=== PATIENT | female | born 1965 | race Caucasian/White ===

== ENCOUNTER 2017-06-30 20:09 | Emergency (ER) | payer SELFPAY ==
[~2017-06-30] VITALS: Ht 177.8 cm; Wt 72.5 kg
[~2017-06-30 20:09] MED LIST: Z.0.NO CURRENT MEDS
[2017-06-30 20:15] VITALS: BP 141/91; PULSE 92; RESP 18; TEMP 98.3; O2SAT 98
[2017-06-30] MEDS ORDERED: SODIUM CHLOR 0.9% 1000 ML INJ 1,000 ML IV SCH (20:16)
--- NOTE | 2017-06-30 20:16 | PD ---
HPI Chief Complaint: Alcohol/Drug Intoxication Time Seen by Provider: 20:14 Travel History International Travel<30 days: No Contact w/Intl Traveler<30days: No Traveled to known affect area: No History of Present Illness HPI The patient is a 52-year-old female who was found passed out in the women's restroom at [employer] where she works. She denies any head trauma or any other trauma. She denies any alcohol. Ambulance personnel reported a smell of alcohol on her breath. Blood sugar was 90 per [facility] personnel. The patient does have a history of depression. PFSH Past Medical History Cancer: No Diabetes: No Glaucoma: No Hepatitis: No Hiatal Hernia: No Hypertension: No Thyroid Disease: No Past Surgical History Abdominal Surgery: Yes (APPENDECTOMY) Gynecologic Surgery: Yes (C SECTION,) Thoracic Surgery: Yes (BREAST IMPLANTS) Social History Alcohol Use: Yes (WINE OCC.) Tobacco Use: No Allergies-Medications (Allergen,Severity, Reaction): Coded Allergies: vitamin E (d-alpha tocopherol) (Verified Allergy, Intermediate, Rash, ) No Known Allergies (Verified Adverse Reaction, Unknown, 06/30/17) Reported Meds & Prescriptions Reported Meds & Active Scripts Active Active Prescriptions or Reported Medications Unobtainable Review of Systems ROS Limitations: Intoxication, Altered Mental Status Except as stated in HPI: all other systems reviewed are Neg Physical Exam Exam Limitations: Intoxication, Altered Mental Status Narrative GENERAL: The patient is slightly somnolent but will answer questions fairly quickly and appropriately. She smells of what appears to be vodka. Her vital signs show blood pressure 141/91 with heart rate of 92 but otherwise normal. SKIN: Focused skin assessment warm/dry. HEAD: Atraumatic. Normocephalic. EYES: Pupils equal and round. No scleral icterus. No injection or drainage. ENT: No nasal bleeding or discharge. Mucous membranes pink and moist. NECK: Trachea midline. No JVD. CARDIOVASCULAR: Regular rate and rhythm. No murmur appreciated. RESPIRATORY: No accessory muscle use. Clear to auscultation. Breath sounds equal bilaterally. GASTROINTESTINAL: Abdomen soft, non-tender, nondistended. Hepatic and splenic margins not palpable. No guarding or rebound is present. MUSCULOSKELETAL: No obvious deformities. No clubbing. No cyanosis. No edema. NEUROLOGICAL: Awake and alert. No obvious cranial nerve deficits. Motor grossly within normal limits. Normal speech. PSYCHIATRIC: The patient appears alcohol intoxicated; insight and judgment fair. Data Data Last Documented VS Vital Signs Date Time Temp Pulse Resp B/P (MAP) Pulse Ox O2 Delivery O2 Flow Rate FiO2 06/30/17 20:21 18 98 06/30/17 20:21 92 Room Air 06/30/17 20:15 98.3 141/91 (108) Orders Orders Electrocardiogram (06/30/17 20:16) Complete Blood Count With Diff (06/30/17 20:16) Comprehensive Metabolic Panel (06/30/17 20:16) Troponin I (06/30/17 20:16) Urinalysis - C+S If Indicated (06/30/17 20:16) Ecg Monitoring (06/30/17 20:16) Iv Access Insert/Monitor (06/30/17 20:16) Oximetry (06/30/17 20:16) Sodium Chloride 0.9% Flush (Ns Flush) (06/30/17 20:30) Sodium Chlor 0.9% 1000 Ml Inj (Ns 1000 M (06/30/17 20:16) Drug Screen, Random Urine (06/30/17 20:16) Alcohol (Ethanol) (06/30/17 20:16) Tylenol (Acetaminophen) (06/30/17 20:16) Electrocardiogram (06/30/17 20:59) Labs Laboratory Tests Test 06/30/17 20:20 White Blood Count 6.3 TH/MM3 Red Blood Count 4.44 MIL/MM3 Hemoglobin 14.0 GM/DL Hematocrit 41.6 % Mean Corpuscular Volume 93.7 FL Mean Corpuscular Hemoglobin 31.6 PG Mean Corpuscular Hemoglobin Concent 33.8 % Red Cell Distribution Width 12.1 % Platelet Count 272 TH/MM3 Mean Platelet Volume 6.8 FL Neutrophils (%) (Auto) 36.7 % Lymphocytes (%) (Auto) 54.2 % Monocytes (%) (Auto) 7.1 % Eosinophils (%) (Auto) 1.4 % Basophils (%) (Auto) 0.6 % Neutrophils # (Auto) 2.3 TH/MM3 Lymphocytes # (Auto) 3.5 TH/MM3 Monocytes # (Auto) 0.4 TH/MM3 Eosinophils # (Auto) 0.1 TH/MM3 Basophils # (Auto) 0.0 TH/MM3 CBC Comment DIFF FINAL Differential Comment Urine Color STRAW Urine Turbidity CLEAR Urine pH 6.0 Urine Specific [place] 1.007 Urine Protein NEG mg/dL Urine Glucose (UA) NEG mg/dL Urine Ketones NEG mg/dL Urine Occult Blood NEG Urine Nitrite NEG Urine Bilirubin NEG Urine Leukocyte Esterase NEG Urine RBC 0-2 /hpf Urine WBC 0-2 /hpf Urine Squamous Epithelial Cells 0-5 /hpf Urine Bacteria NONE /hpf Microscopic Urinalysis Comment CATH-CULT NOT IND Blood Urea Nitrogen 14 MG/DL Creatinine 1.00 MG/DL Random Glucose 112 MG/DL Total Protein 7.5 GM/DL Albumin 4.0 GM/DL Calcium Level 8.9 MG/DL Alkaline Phosphatase 55 U/L Aspartate Amino Transf (AST/SGOT) 22 U/L Alanine Aminotransferase (ALT/SGPT) 28 U/L Total Bilirubin 0.8 MG/DL Sodium Level 142 MEQ/L Potassium Level 3.8 MEQ/L Chloride Level 104 MEQ/L Carbon Dioxide Level 31.9 MEQ/L Anion Gap 6 MEQ/L Estimat Glomerular Filtration Rate 58 ML/MIN Troponin I LESS THAN 0.02 NG/ML Urine Opiates Screen NEG Urine Barbiturates Screen NEG Urine Amphetamines Screen NEG Urine Benzodiazepines Screen NEG Urine Cocaine Screen NEG Urine Cannabinoids Screen NEG Ethyl Alcohol Level 333 MG/DL MDM Medical Decision Making Medical Screen Exam Complete: Yes Emergency Medical Condition: Yes Medical Record Reviewed: Yes Interpretation(s) The alcohol level is 333. The urine toxicology screen is negative for all substances tested. The complete metabolic profile shows a GFR of 58 but is otherwise unremarkable. The CBC is normal. Differential Diagnosis Head trauma, metabolic disturbance, drug intoxication, alcohol intoxication Narrative Course It is obvious that the patient is not truthful when she says she did not drink any alcohol. The patient appears alcohol intoxicated. There is no evidence for drug intoxication. There is no evidence for head trauma or metabolic disturbance. Diagnosis Primary Impression: Alcohol intoxication Additional Impression: Altered mental status Additional Instructions: It is necessary to discontinue alcohol. Use Barrett Marchman if you have difficulty doing this. Med/Other Pt SpecificInfo: No Change to Meds Scripts Unable to Obtain Active Prescriptions or Reported Meds Disposition: 01 DISCHARGE HOME Condition: Stable Alfa Singer MD Jun 30, 2017 20:16
[2017-06-30 20:21] VITALS: RESP 18; O2SAT 98
[2017-06-30] MEDS ORDERED: SODIUM CHLORIDE 0.9% FLUSH 10 ML FLUSH IV FLUSH PRN (20:30)
[2017-06-30 20:44] LABS: AUTOMATED NEUTROPHIL # 2.3 TH/MM3 (1.8-7.7); BASOPHIL % 0.6 % (0.0-2.0); EOSINOPHIL # 0.1 TH/MM3 (0-0.4); EOSINOPHIL % 1.4 % (0.0-4.0); HEMATOCRIT 41.6 % (35.0-46.0); LYMPH % 54.2 % (9.0-44.0); LYMPHOCYTE # 3.5 TH/MM3 (1.0-4.8); MEAN CELL VOLUME 93.7 FL (80.0-100.0); MEAN CORPUSCULAR HEMOGLOBIN 31.6 PG (27.0-34.0); MEAN CORPUSCULAR HGB CONC 33.8 % (32.0-36.0); MEAN PLATELET VOLUME 6.8 FL (7.0-11.0); MONO % 7.1 % (0.0-8.0); MONOCYTE # 0.4 TH/MM3 (0-0.9); NEUT % 36.7 % (16.0-70.0); PLATELET COUNT 272 TH/MM3 (150-450); RED BLOOD COUNT 4.44 MIL/MM3 (4.00-5.30); RED CELL DISTRIBUTION WIDTH 12.1 % (11.6-17.2); WHITE BLOOD COUNT 6.3 TH/MM3 (4.0-11.0)
[2017-06-30 20:49] LABS: CHLORIDE 104 MEQ/L (98-107); SODIUM (NA) 142 MEQ/L (136-145)
[2017-06-30 20:54] LABS: BILIRUBIN, URINE NEG (NEG); BLOOD, URINE NEG (NEG); CALCIUM 8.9 MG/DL (8.5-10.1); GLUCOSE,URINE NEG (NEG); KETONE, URINE NEG (NEG); NITRITE,URINE NEG (NEG); URINE LEUKOCYTE ESTERASE NEG (NEG)
[2017-06-30 20:55] LABS: BICARBONATE 31.9 MEQ/L (21.0-32.0); BLOOD UREA NITROGEN 14 MG/DL (7-18); GLUCOSE,RANDOM 112 MG/DL (74-106)
[2017-06-30 20:58] LABS: ALT (GPT) 28 U/L (10-53); AST (GOT) 22 U/L (15-37); GLOMERULAR FILTRATION RATE 58 ML/MIN (>89)
[2017-06-30 21:00] LABS: RBC, URINE 0-2 /hpf (0-3); SQUAMOUS EPITHELIAL CELL URINE 0-5 /hpf (0-5); TOTAL BILIRUBIN ADULT 0.8 MG/DL (0.2-1.0); TOTAL PROTEIN 7.5 GM/DL (6.4-8.2); URINE COLOR STRAW (YELLW/STRAW); WBC, URINE 0-2 /hpf (0-5)
[2017-06-30 21:01] LABS: ALKALINE PHOSPHATASE 55 U/L (45-117)
[2017-06-30 21:03] LABS: TROPONIN I LESS THAN 0.02 NG/ML (0.02-0.05)
[2017-06-30 22:00] LABS: ACETAMINOPHEN LESS THAN 2.0 MCG/ML (10.0-30.0)
[2017-06-30 22:19] VITALS: BP 130/74; PULSE 74; RESP 18; O2SAT 98
[2017-06-30 23:27] VITALS: BP 116/69; PULSE 72; RESP 18; O2SAT 98
--- NOTE | 2017-07-01 13:55 | EKG ---
Date Performed: 06/30/2017 Time Performed: 21:02:40 PTAGE: 52 years EKG: Sinus rhythm POSSIBLE LEFT ATRIAL ENLARGEMENT BORDERLINE LEFT AXIS DEVIATION INCOMPLETE RIGHT BUNDLE BRANCH BLOCK BORDERLINE ECG INTERPRETATION BASED ON A DEFAULT AGE OF 38 YEARS PREVIOUS TRACING : 05/30/2010 13.47 Since previous tracing, axis is somewhat more leftwar d; otherwise, no significant change. DOCTOR: Jose Antonio Castillo Interpretating Date/Time 07/01/2017 13:55:03
== END 2017-06-30 23:43 | disposition home or self-care (01) ==
LOC: PHED 20:09
DX: F10.129 Alcohol abuse with intoxication, unspecified (principal); R41.82 Altered mental status, unspecified; R55 Syncope and collapse; R94.31 Abnormal electrocardiogram [ECG] [EKG]; F32.9 Major depressive disorder, single episode, unspecified
CPT/HCPCS: 80053; 80307; 81001; 84484; 85025; 93005; 96360; 99284; J7030